=== PATIENT | male | born 1960 | race Caucasian/White ===

== ENCOUNTER 2021-02-05 14:48 | Emergency (ER) | payer OTHER, SELFPAY ==
[2021-02-05 14:51] VITALS: BP 141/78; PULSE 78; RESP 20; TEMP 36.4; O2SAT 98
--- NOTE | 2021-02-05 14:54 | DI.US.S_ITS ---
PROCEDURE: US PERIPH VENOUS LOW EXTREM LT INDICATIONS: R/O DVT TECHNIQUE: Real-time imaging, as well as color and pulse Doppler interrogation, were performed of the lower extremity deep veins from the inguinal ligament to the popliteal fossa. COMPARISON: None. FINDINGS: Thrombus is present within the proximal and mid peroneal veins. It does not appear to extend into the popliteal vein. IMPRESSION: Deep venous thrombosis within the peroneal vein appearing to not extend into the popliteal vein. Dictated by: Carrie Serrato M.D. on 02/05/2021 at 15:48 Approved by: Carrie Serrato M.D. on 02/05/2021 at 15:48
--- NOTE | 2021-02-05 15:26 | ED_ITS ---
HPI - Extremity Injury (Lower) General Chief Complaint: Extremity Injury, Lower Stated Complaint: Lt leg rule out dvt. Time Seen by Provider: 02/05/21 15:17 Source: patient Mode of arrival: Ambulatory History of Present Illness HPI Narrative: 60-year-old male daily smoker with noncontributory medical history presents with a chief complaint of pain and swelling in his left posterior calf for the past few days. He denies any injury nor fever or chills. He states that he recently drove from here to [facility] and back and thinks he started having pain probably after the 1st day. He denies any history of blood clot and has had no chest pain or shortness of breath. His pain is worse with ambulation and improves with rest. He denies any numbness, tingling or weakness Related Data Previous Rx's Medication Instructions Recorded apixaban 5 mg (74 tabs) tablets in See Rx Instructions .ROUTE 02/05/21 a dose pack (Supersonic DVT-PE Treat .COMPLEX #74 ea 30D Start) Allergies Allergy/AdvReac Type Severity Reaction Status Date / Time No Known Drug Allergies Allergy Verified 02/05/21 14:53 Review of Systems Review of Systems Narrative: GENERAL: Denies chills, fatigue, malaise, fever, sweats. HEENT: Denies sinus pain, ear pain, sore throat, difficulty swallowing, dizziness. RESPIRATORY: Denies dyspnea, cough, wheezing, hemoptysis, sputum. CARDIOVASCULAR: Denies chest pain, palpitations, orthopnea, edema, GASTROINTESTINAL: Denies nausea, vomiting, abdominal pain, diarrhea, constipation, melena. : Denies dysuria, frequency, incontinence, hematuria, urinary retention. MUSCULOSKELETAL: see HPI SKIN: Denies rash, skin lesions, or other NEUROLOGIC: Denies weakness, headache, numbness, change in speech, confusion, seizures, incoordination. PSYCHIATRIC: No concerning psychosocial issues. 12 point review of systems is negative except for those stated above Patient History Social History Smoking Status: Current every day smoker Smoking Status: Current every day smoker Exam Narrative Exam Narrative: GEN: AOx3 and in mild distress EYES: Pupils are equal, round, and reactive to light and accommodation. Extraoccular muscles are intact bilaterally. There is no subconjunctival hemorrhage or exudate. CHEST: Lungs are clear to auscultation bilaterally and free of wheezes, rales, or rhonchi. Heart rate is regular rhythm, there are no murmurs, clicks, rubs, or gallops. There is no chest wall tenderness. ABD: Abdomen is soft and nontender. There is no guarding or rebound. Bowel sounds are normal in all 4 quadrants. There is no mass or organomegaly. EXT: Pain on palpation of left posterior calf without any noted erythema, warmth. No obvious swelling. SKIN: Warm, pink, and dry. No erythema or rash Initial Vital Signs Initial Vital Signs: Vital Signs Temperature 97.6 F 02/05/21 14:51 Pulse Rate 78 02/05/21 14:51 Respiratory Rate 20 02/05/21 14:51 Blood Pressure 141/78 H 02/05/21 14:51 Pulse Oximetry 98 02/05/21 14:51 Course Orders Ordered: ED Orders 02/05/21 14:54 US periph venous low extrem lt Stat Consultations Consultation #1: Discussed with on-call Oncology regarding size and location of clot with upcoming long distance travel. He was very quick to suggest anticoagulation in this patient and states that they routinely will use anticoagulation in patients with radiographic evidence of a DVT even when distal. Vital Signs Vital signs: Vital Signs - 8 hr 02/05/21 14:51 02/05/21 16:22 02/05/21 16:45 Temperature 97.6 F Pulse Rate 78 76 76 Respiratory Rate 20 18 Blood Pressure 141/78 H 125/78 115/78 Pulse Oximetry 98 98 97 MDM - Extremity Injury (Lower) Imaging Data US - DVT: Radiologist's Impression: Chart Viewer Diagnostics Subcategory All Activity ??:?? All Time ??:?? All Subcategories Filter Laboratory Imaging Microbiology Pathology Blood Bank Tests Cardiovascular Other Specialty DATE TYPE STATUS REF RANGE/AUTHOR Hx Today 14:54 Vascular Ultrasound Signed Carrie Serrato Michael D 60, M?1960 MRN#? [id number] [facility],?Main ED??R05?? 88.451kg ? Extremity Injury, Lower Acc#? [id number] Resus Status Not Ordered No Hx Avail Special Indicators No Data to Display Home Meds Prescription Monitoring Program No Data to Display Allergies No Known Drug Allergies Problems No Data to Display Vital Signs Today 16:22 BP 125/78? Pulse 76? O2 Sat 98? Diagnostics Reports Paul Newsome??60??M??1960 ? Allergy/Adv: No Known Drug Allergies Close Vascular Ultrasound (Signed) Carrie Serrato - 02/05/21 Launch?[address] [address] Ultrasound Report Signed Patient: Paul Newsome MR#: [id number] : 1960 Acct:[id number] Age/Sex: 60 / M Date of Service: 02/05/21 Loc: ED Accession Number: [id number] ?? Procedure: US periph venous low extrem lt Ordering Provider: Mike Lantigua D.O. PROCEDURE:? US PERIPH VENOUS LOW EXTREM LT ? INDICATIONS:? R/O DVT ? TECHNIQUE:? Real-time imaging, as well as color and pulse Doppler interrogation, were performed of the lower extremity deep veins from the inguinal ligament to the popliteal fossa.? ? COMPARISON:? None. ? FINDINGS:? Thrombus is present within the proximal and mid peroneal veins.? It does not appear to extend into the popliteal vein. ? IMPRESSION:? Deep venous thrombosis within the peroneal vein appearing to not extend into the popliteal vein. ? ? Dictated by: Carrie Serrato M.D. on 02/05/2021 at 15:48 ? ? Approved by: Carrie Serrato M.D. on 02/05/2021 at 15:48 ? Discharge Plan Departure Patient Disposition: Home Clinical Impression: DVT (deep venous thrombosis) Qualifiers: DVT location: lower extremity Affected thrombotic vein of extremity: unspecified lower extremity distal vein Chronicity: acute Laterality: left Qualified Code(s): I82.4Z2 - Acute embolism and thrombosis of unspecified deep veins of left distal lower extremity Activity Restrictions/Additional Instructions: *You have been diagnosed with [left lower extremity DVT] *What to do: *Please continue to take your regular medications as directed. [ x] New medication prescriptions sent to your pharmacy: [ [facility]] [ ] New medication written as a paper prescription [ ] No new medications given *Please follow up with your primary care provider in 2-3 days, call for an appointment. Let them know you were seen in the Emergency Department and that we ask that you be seen in follow up. We will electronically transmit a record of today's note if your PCP is in our system *If you do not have a primary care provider please contact the [facility] Resource line at [phone]. They will ask some questions about your medical history and help get you set up with a doctor in the community. *Return to Emergency Department if you should have any new, worsening or concerning symptoms, such as [fever greater than 101 F, shaking chills, worsening pain, persistent vomiting or other bothersome symptoms] Prescriptions: New Eliquis DVT-PE Treat 30D Start 5 mg (74 tabs) tablets,dose pack See Rx Instructions .ROUTE .COMPLEX Qty: 74 RF: 0
[2021-02-05 16:22] VITALS: BP 125/78; PULSE 76; O2SAT 98
--- NOTE | 2021-02-05 16:30 | PC.NURSE ---
Dr. Lantigua asked for consult from oncology conductor pullman for this patient at 16:15. Able to connect with provider Dr. Tatyana Menon MD at 16:31
--- NOTE | 2021-02-05 16:42 | PC.NURSE ---
Pt states that he went on a 3000 mile trip over the span of 3 days. Developed L calf pain. DIRECTOR DERMATOLOGY intact. Increased pain with weight baring and foot flexion.
[2021-02-05 16:45] VITALS: BP 115/78; PULSE 76; RESP 18; O2SAT 97
== END 2021-02-05 16:45 | disposition home or self-care (01) ==
PROVIDERS: Emergency Provider Emergency Medicine
DX: I82.4Z2 Acute embolism and thrombosis of unspecified deep veins of left distal lower extremity (principal)
CPT/HCPCS: 93971; 99283